=== PATIENT | male | born 1990 | race Caucasian/White ===

== ENCOUNTER 2018-04-30 10:40 | Emergency (ER) | payer MEDICAID ==
[2018-04-30 12:56] LABS: Basophils # (auto) 0 uL; Eosinophils # (auto) 0 uL; Eosinophils % (auto) 0.1 % (0.0-7.0); Lymphocytes # (auto) 0.6 uL; Neutrophils # (auto) 4.7 uL; Nucleated Red Blood Cells % 0.1 %; Red Cell Distribution Width 12.5 % (11.8-14.3)
[2018-04-30 12:59] LABS: Basophils % (auto) 0.2 % (0.0-2.0); Hematocrit 43.4 % (41.0-53.0); Hemoglobin 15.8 g/dL (13.5-17.5); Lymphocytes % (auto) 9.8 % (10.0-50.0); Mean Corpuscular Hemoglobin 34.7 pg (28.0-32.0); Mean Corpuscular Hgb Conc. 36.5 g/dL (32.0-36.0); Mean Corpuscular Volume 95.1 fL (80.0-100.0); Monocytes # (auto) 0.9 uL; Neutrophils % (auto) 75.9 % (37.0-80.0); Platelet Count (auto) 140 10^3/uL (140-450); Red Blood Cells 4.56 10^6/uL (4.5-5.90); White Blood Cell 6.2 10^3/uL (4.4-10.8)
[2018-04-30 13:13] LABS: Potassium 4.4 mmol/L (3.5-5.1)
[2018-04-30 13:20] LABS: Albumin 4.2 g/dL (3.4-5.0); BUN/Creatinine Ratio 18.4; Calcium 8.9 mg/dL (8.5-10.1); Total Protein 7.8 g/dL (6.4-8.2)
[2018-05-01] MEDS ORDERED: SODIUM CHLORIDE 0.9% 1,000 ML IV ONE ×2 (00:51→01:00)
[2018-05-01 01:28] LABS: Basophils # (auto) 0 uL; Eosinophils # (auto) 0 uL; Hemoglobin 16.3 g/dL (13.5-17.5); Lymphocytes # (auto) 1.2 uL; Mean Corpuscular Volume 95.7 fL (80.0-100.0); Monocytes % (auto) 14.3 % (0.0-12.0); Neutrophils # (auto) 3.2 uL; Nucleated Red Blood Cells % 0.1 %; White Blood Cell 5.2 10^3/uL (4.4-10.8)
[2018-05-01 01:30] LABS: Basophils % (auto) 0.3 % (0.0-2.0); Hematocrit 45.4 % (41.0-53.0); Lymphocytes % (auto) 23.8 % (10.0-50.0); Mean Corpuscular Hemoglobin 34.4 pg (28.0-32.0); Mean Corpuscular Hgb Conc. 35.9 g/dL (32.0-36.0); Monocytes # (auto) 0.8 uL; Neutrophils % (auto) 61.6 % (37.0-80.0); Platelet Count (auto) 139 10^3/uL (140-450); Red Blood Cells 4.74 10^6/uL (4.5-5.90); Red Cell Distribution Width 12.7 % (11.8-14.3)
[2018-05-01 01:45] LABS: INR 1.08 (0.9-1.15); Partial Thromboplastin Time 29.9 sec (23.78-33.04); Prothrombin Time 11.5 sec (9.27-12.13)
[2018-05-01 01:52] LABS: Albumin 4.5 g/dL (3.4-5.0); BUN/Creatinine Ratio 18.2; Calcium 8.4 mg/dL (8.5-10.1); Potassium 3.5 mmol/L (3.5-5.1)
[2018-05-01 01:55] LABS: Bilirubin, Total 0.8 mg/dL (0.2-1.0); Total Protein 7.7 g/dL (6.4-8.2)
[2018-05-01 05:00] VITALS: BP 130/70
== END 2018-05-01 05:24 | disposition home or self-care (01) ==
LOC: EDBD 10:40 → ER 10:47
DX: K52.9 Noninfective gastroenteritis and colitis, unspecified (principal)
CPT/HCPCS: 36415; 80053; 80320; 80329; 82270; 85025; 85610; 85730; 86850; 86900; 86901; 96360; 99283; J7030